=== PATIENT | female | born 2000 | race Caucasian/White ===

== ENCOUNTER 2022-11-29 10:58 | Outpatient (CLI) | payer BC, SELFPAY | END 2022-11-29 10:59 | disposition home or self-care (01) | LOC: NFLDREF 11-30 14:12 | PROVIDERS: PCP Family Medicine; Referring Provider Family Medicine; Visit Provider Nurse Practitioner Family | DX: Z79.899 Other long term (current) drug therapy (principal) | CPT/HCPCS: 80053; 82306; 84443 ==

== ENCOUNTER 2024-12-15 08:21 | Outpatient (CLI) | payer BC, SELFPAY | END 2024-12-15 08:22 | disposition home or self-care (01) | PROVIDERS: PCP Family Medicine; Visit Provider Family Medicine | DX: R23.3 Spontaneous ecchymoses (principal); R63.6 Underweight; Z68.1 Body mass index [BMI] 19.9 or less, adult; Z13.6 Encounter for screening for cardiovascular disorders; Z13.29 Encounter for screening for other suspected endocrine disorder; Z13.21 Encounter for screening for nutritional disorder | CPT/HCPCS: 80053; 80061; 82306; 83540; 84443 ==

== ENCOUNTER 2025-02-11 10:05 | Outpatient (CLI) | payer BC, SELFPAY | END 2025-02-11 10:06 | disposition home or self-care (01) | LOC: NFLDREF 02-25 01:48 | PROVIDERS: PCP Family Medicine; Referring Provider Family Medicine; Visit Provider Family Medicine | DX: R23.3 Spontaneous ecchymoses (principal) | CPT/HCPCS: 82728; 83540; 83550 ==